=== PATIENT | male | born 1935 | race American Indian/Alaskan Native ===

== ENCOUNTER 2019-12-09 16:02 | Outpatient (CLI) | payer MEDICARE, OTHER ==
--- NOTE | 2019-12-09 17:45 | XRay Report ---
Left knee-3 views INDICATION: LEFT KNEE PAIN. COMPARISON: None. IMPRESSION: No acute osseous or soft tissue abnormality. Mild tricompartmental DJD. Signer Name: Adarsh Pineda MD Signed: 12/09/2019 5:40 PM Workstation Name: [id number]
== END 2019-12-09 16:03 | disposition home or self-care (01) ==
LOC: SPVIMAG 16:02
PROVIDERS: ATTEND Internal Medicine Hematology
DX: M17.12 Unilateral primary osteoarthritis, left knee (principal); C61 Malignant neoplasm of prostate